=== PATIENT | female | born 1985 | race Caucasian/White ===

== ENCOUNTER → 2017-02-09 | Outpatient (CLI) | payer MEDICAID | LOC: FIMAGING 13:59 | PROVIDERS: ATTEND Midwife | DX: D25.2 Subserosal leiomyoma of uterus (principal); N92.6 Irregular menstruation, unspecified ==

== ENCOUNTER 2017-11-23 06:01 | Inpatient (IN) | payer MEDICAID ==
--- NOTE | 2017-11-16 17:01 | GHP ---
[f rep st] HISTORY AND PHYSICAL DATE OF ADMISSION: 11/23/2017 ADMITTING DIAGNOSIS: 1. Intrauterine at 39 weeks and 2 days. 2. Large cervical fibroid. 3. Primary section. HISTORY OF PRESENT ILLNESS: Patient is a 31-year-old, 1, para 0, at 39 and 2/7 weeks with estimated due date 11/28/2017 by LMP of 02/21/2017 and consistent with first trimester ultrasound at 8 weeks and 6 days. Patient presents to Labor and Delivery for a primary secondary to a large cervical fibroid. Discussed possible protracted labor, arrest of dilation and excessive bleeding secondary to location of fibroid and recommend we proceed with a . The patient agrees to a . Patient states good movement. Denies any leakage of fluid, vaginal bleeding, or contractions. Patient does desire cord blood collection and will bring her kit in. Patient has had good care at [facility], and presented in her first trimester. The has been mostly uncomplicated. All genetic testing was negative. Anatomy scan was normal with an estimated weight in 76%; however, there was a large left lateral fibroid off the cervix measuring 5 x 5 x 5 cm. A followup growth ultrasound in the 3rd trimester revealed normal growth with an estimated weight in 75%, and the posterior cervical fibroid had enlarged to 6 x 4 x 5.8 cm. Patient did receive Tdap during the . She developed anemia of and is tolerating iron. GBS culture is negative. PAST OB HISTORY: This is the patient's first . PAST FOUNDATION COORDINATOR HISTORY: Age of menarche is 10. Cycles are every 30-31 days for 7 days. LMP 02/21/2017. Positive test middle of March 2017. Patient denies history of abnormal Pap smears or any exposure to sexually transmitted diseases. MEDICATIONS: vitamin with DHA, folic acid, and iron. ALLERGIES: No known drug allergies. PAST MEDICAL HISTORY: Childhood asthma secondary to allergies with no symptoms for the last 15 years. PAST SURGICAL HISTORY: None. FAMILY HISTORY: Paternal grandmother with some type of pelvic cancer. Maternal grandfather, stroke. Maternal grandmother, dementia. Mother is a smoker. Paternal grandfather is an alcoholic. SOCIAL HISTORY: Patient is . 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 She moved here from [place], the rest of her family is still in [place]. She denies any current alcohol, tobacco, or illicit drug use. REVIEW OF SYSTEMS: 10-point review of systems negative. Pertinent positives noted in HPI. LABS: A-positive, antibody negative. RPR nonreactive. Rubella immune. Hepatitis B surface antigen negative. HIV negative. Standard panel all negative on 05/05/2017. Urine culture negative. Pap test negative in 2017. Gonorrhea, and chlamydia cultures negative. Single AFP negative 2017. Innatal negative 05/05/2017. H and H 12.1 and 35.6. One-hour Glucola 114. GBS culture is negative. PHYSICAL EXAMINATION: VITAL SIGNS: On admission, vital signs are stable. Patient is afebrile. GENERAL: Patient is well-nourished, well-developed female. Alert and oriented x3. No apparent distress. NEUROLOGIC: Grossly intact motor. CARDIOVASCULAR: Regular rate and rhythm. LUNGS: Clear to auscultation bilaterally. SKIN: Warm, dry with no rash. ABDOMEN: Gravid, soft, nontender. PELVIC: Deferred. EXTREMITIES: Normal to inspection without calf tenderness or edema. MUSCULOSKELETAL: Normal gait, range of motion. ASSESSMENT/PLAN: Patient is a 31-year-old 1, para 0, at 39 and 2/7 weeks who presents for a primary section secondary to a large cervical fibroid. 1. Admit to Labor and Delivery. 2. Surgical consents are on the chart. 3. Discussed risks, benefits, and alternatives of the procedure including, but not limited to, bleeding, infection, damage to surrounding organs, and other procedures including hysterectomy. 4. Patient understands all risks of the surgery and wants to proceed. 5. Antibiotics concrete carpenter to operating room. 6. Sequential compression devices for deep venous thrombosis prophylaxis. /[id number]/MODL MTDD
[2017-11-23] MEDS ORDERED: ceFAZolin 2 GM/DEXTROSE 100 ML IV ONE (06:47)
[2017-11-23] MEDS ORDERED: LR 500 ML IV ONE (06:47)
[2017-11-23] MEDS ORDERED: LR 1,000 ML IV SCH (06:47)
[2017-11-23] MEDS ORDERED: CITRIC ACID/SODIUM CITRATE 30 ML UDCUP PO ONE (06:47)
[2017-11-23 07:01] LABS: PLATELET COUNT 206 10^3/uL (150-400)
--- NOTE | 2017-11-23 07:06 | PREANESOB ---
Obstetric Pre-Anesthesia Info - General Info Proposed Procedure: C Section. : 1 Para: 0 MARCUS: 11/28/17 Gestational Age: 39 week(s) and 2 day(s) - Info Status: Full Term Monitors: External FHR Baseline (bpm): 130 FHR Pattern: Reassuring - Labor Status Section History: Primary (Uterine fibroid.) Labor Epidural: No Anesthesia ROS: No prior anesthesia. Allergies/Adverse Reactions: Allergy/AdvReac Type Severity Reaction Status Date / Time No Allergies Allergy Verified 11/23/17 06:21 Visit Medications: Generic Name Dose Route Start Last Admin Trade Name Freq PRN Reason Stop Dose Admin Cefazolin Sodium/Dextrose 100 mls @ 200 mls/hr 11/23/17 06:47 Ancef 2 Gm IV 11/23/17 07:16 ONCALL ONE Protocol Lactated Ringer's 1,000 mls @ 125 mls/hr 11/23/17 06:47 Lr IV 11/24/17 06:46 CONT YAMIL Discontinued Medications Generic Name Dose Route Start Last Admin Trade Name Freq PRN Reason Stop Dose Admin Citric Acid/Sodium Citrate 30 ml 11/23/17 06:47 Bicitra PO 11/23/17 06:48 ONCALL ONE Lactated Ringer's 500 mls @ 0 mls/hr 11/23/17 06:47 Lr IV 11/23/17 06:48 ONCE ONE As Directed - Anesthesia History Response to Local Anesthetics: Normal Anesthesia & Operative History: No Prior Problems Family Anesthesia History: Negative - Social History Substance Use/Abuse: Denies - Vital Signs Latest Vital Signs (Nursing): Temp Pulse Resp BP Pulse Ox 36.9 C 85 14 124/57 H 93 11/23/17 06:21 11/23/17 06:21 11/23/17 06:21 11/23/17 06:21 11/23/17 06:21 Blood Pressure: 124/57 Heart Rate: 85 Height/Weight (Nursing): Height 160.02 cm Weight 77.111 kg - Focused Exam Neck exam: FROM Mallampati Score: Class 1 Mouth exam: normal dental/mouth exam Pulmonary: no respiratory distress Cardiovascular: regular rate and rhythym Labs: 11/23/17 06:30 - Plan Anesthetic Plan: SAB Consent Signed and on Chart: Yes Patient/Guardian Understands and Agrees to Plan: Yes
[2017-11-23] MEDS ORDERED: LIDOCAINE 1% 300 MG/30 ML SDV ONE (07:12)
[2017-11-23] MEDS ORDERED: AMMONIA AROMATIC 1 EACH AMP IH ONE (07:12)
[2017-11-23] MEDS ORDERED: OLIVE OIL 118 ML BTL ONE (07:12)
[2017-11-23] MEDS ORDERED: MISOPROSTOL 200 MCG TAB ONE (07:13)
[2017-11-23] MEDS ORDERED: OXYTOCIN 10 UNIT/ML VIAL ONE (07:13)
[2017-11-23] MEDS ORDERED: TERBUTALINE SULFATE 1 MG/ML VIAL ONE (07:13)
[2017-11-23] MEDS ORDERED: morphINE PF 5 MG/10 ML INJ ONE (07:24)
[2017-11-23] MEDS ORDERED: fentaNYL 100 MCG/2 ML INJ ONE (07:25)
[2017-11-23] MEDS ORDERED: OXYTOCIN 100 UNITS/10 ML VIAL ONE (08:21)
[2017-11-23] MEDS ORDERED: ONDANSETRON 4 MG/2 ML VIAL ONE ×2 (08:22→08:51)
[2017-11-23] MEDS ORDERED: DEXAMETHASONE 4 MG/ML VIAL ONE ×2 (08:22→08:51)
[2017-11-23] MEDS ORDERED: PHENYLEPHRINE HCL 100 MCG/ML SYR ONE ×2 (08:38→08:51)
[2017-11-23] MEDS ORDERED: NALOXONE HCL 0.4 MG/ML INJ IVP PRN (09:29)
[2017-11-23] MEDS ORDERED: ONDANSETRON 4 MG/2 ML VIAL IVP PRN (09:29)
[2017-11-23] MEDS ORDERED: PHENYLEPHRINE HCL 100 MCG/ML SYR IVP PRN (09:29)
[2017-11-23] MEDS ORDERED: fentaNYL 100 MCG/2 ML INJ IVP PRN (09:29)
--- NOTE | 2017-11-23 09:32 | POSTANESTH ---
Post Anesthetic Evaluation Cardiovascular Status: Normal, Stable, Similar to Pre-Op Cond, Tx Over/Under Hydration Respiratory Status: Similar to Pre-op Cond. Level of Consciousness/Mental Status: Can Participate in Eval, Alert and Oriented Pain Control: Adequate, Prn Tx Ordered Nausea/Vomiting Control: Adequate, Prn Tx Ordered Complications Possibly Related to Anesthesia: None Noted
[2017-11-23] MEDS ORDERED: KETOROLAC 30 MG/1 ML SDV ONE (11:27)
[2017-11-23] MEDS ORDERED: SIMETHICONE 80 MG TAB CHEW PO PRN (12:08)
[2017-11-23] MEDS ORDERED: BISACODYL 10 MG SUPP PR PRN (12:08)
[2017-11-23] MEDS ORDERED: DOCUSATE SODIUM 100 MG CAP PO PRN (12:08)
[2017-11-23] MEDS ORDERED: PROMETHAZINE HCL 25 MG/ML INJ IVP PRN (12:08)
[2017-11-23] MEDS ORDERED: LACTULOSE 20 GM/30 ML UDCUP PO PRN (12:08)
[2017-11-23] MEDS ORDERED: MAGNESIUM HYDROXIDE 30 ML UDCUP PO PRN (12:08)
[2017-11-23] MEDS ORDERED: POLYETHYLENE GLYCOL 3350 17 GM PKT PO PRN (12:08)
--- NOTE | 2017-11-23 12:14 | OBDEL ---
Info Type: Primary Presentation at Delivery: Vertex (compound presentation) L&D Analgesia/Anesthesia Type: Spinal GBS+: No Intrapartum Medications: Discontinued Medications Generic Name Dose Route Start Last Admin Trade Name Jessica PRN Reason Stop Dose Admin Citric Acid/Sodium Citrate 30 ml 11/23/17 06:47 11/23/17 07:52 Bicitra PO 11/23/17 06:48 Not Given ONCALL ONE Cefazolin Sodium/Dextrose 100 mls @ 200 mls/hr 11/23/17 06:47 11/23/17 07:44 Ancef 2 Gm IV 11/23/17 07:16 100 mls ONCALL ONE Administration Protocol Lactated Ringer's 500 mls @ 0 mls/hr 11/23/17 06:47 11/23/17 07:44 Lr IV 11/23/17 06:48 500 mls ONCE ONE Administration As Directed - Infant Care Provider Gerontology Aide/MOTOR VEHICLE OPERATOR ROAD SUPERVISOR: Asha Mitchell - Hospital Course Intrapartum: 11/23/17 12:12 31 y/o @ 39 2/7 wks with large cervical fibroid for PCS Indications for Delivery: Elective (Cervical fibroid) Operative Report - Delivery Pre-op Diagnoses: 31 y/o @ 39 2/7 wks with large cervical fibroid for PCS Post-op Diagnoses: 31 y/o @ 39 2/7 wks with large cervical fibroid for PCS History of Prior Section: No Number of Prior Sections: 0 Nulliparous Prior to Delivery: Yes Indications for Current Section: Other (Specify) (Large cervical fibroid) Procedure: Scheduled, Low Transverse Surgeon: Bernadette Suarez Rn Advice: Jane Gunn Anesthesiologist: Josef Kennedy Complications: None Findings: A viable male infant born at 0825 with 8 and 9 Apgars in cephalic presentation, compound left hand. Delayed cord clamping x 15 seconds. Cord blood collected for stem cells as well as segment of cord. Minimal cord blood obtained. Placenta delivered manually intact with 3-vc. Grossly normal appearing uterus, tubes and ovaries. Cervical fibroid not visualized. No complications. Specimen(s)/Path: Other (Specify) (none) IV Fluid (ml): 2,700 EBL: 700 cc UO: 500 cc clear urine at end [place] Data MARCUS: 11/28/17 Gestational Age: 39 week(s) and 2 day(s) [place] Delivery Date: 11/23/17 Delivery Time: 08:25 Sex of : Male Weight (gm): 3152 g Score (1 Min): 8 Score (5 Min): 9 ICD10 Worksheet Patient Problems: Problems Problem Status Onset Fibroid of cervix Acute Status post primary low transverse section Acute - ICD10 Problem Qualifiers (1) Fibroid of cervix (2) Status post primary low transverse section
--- NOTE | 2017-11-23 12:58 | GOP ---
[f rep st] OPERATIVE REPORT DATE OF OPERATION: 11/23/2017 SURGEON: Bernadette Suarez DO SUPERVISOR OF RESEARCH: OSMAN Loco, needed for adequate exposure and retraction. ANESTHESIA: Spinal. ANESTHESIOLOGIST: Josef Kennedy MD. PREOPERATIVE DIAGNOSIS: Large cervical fibroid. POSTOPERATIVE DIAGNOSIS: Large cervical fibroid. PROCEDURE PERFORMED: Primary low transverse section. FINDINGS: A viable male infant born at 0825 with 8 and 9 Apgars in cephalic presentation, compound with left hand. Delayed cord clamping occurred for 15 seconds. Cord blood was collected for stem cells as well as a segment of cord. Placenta delivered manually intact with 3-vessel cord. Grossly normal- appearing uterus, tubes, and ovaries. The cervical fibroid was not visualized, but was palpated on exam. ESTIMATED BLOOD LOSS: 700 cc. INDICATIONS: The patient is a 31-year-old, G1, P0, at 39-2/7 weeks who presents to Labor and Delivery for a primary secondary to a large cervical fibroid measuring 6 x 6 cm. Discussed risks of protracted labor and increased risk of bleeding and need for urgent secondary to location of fibroid. Recommended proceeding with a primary . Patient agrees with the plan. Discussed risks, benefits, alternatives of the procedure including but not limited to, bleeding, infection, damage to surrounding organs , and another procedure-a hysterectomy. Patient understands all risks of the procedure, and wants to proceed at this time. Patient was properly consented. DESCRIPTION OF PROCEDURE: Patient was taken back to the operating room where spinal anesthesia was obtained without difficulty. The patient was then placed in dorsal lithotomy position, and prepped and draped in the usual sterile fashion. Ayoub catheter was placed at this time. After WHO time out, a Pfannenstiel skin incision was then made 2 cm above the pubic symphysis and carried down to the fascia using the Bovie. The fascia was then extended laterally using the Howell scissors. The rectus muscles were then dissected away both inferiorly and superiorly from the overlying fascia using Howell scissors. Rectus muscles were then in the midline and the peritoneum was visualized and entered bluntly. Bladder blade was then inserted. Vesicouterine peritoneum was identified, entered sharply with the Metzenbaum scissors and a bladder flap was created digitally. The lower uterine segment was identified and a low transverse uterine incision was made with scalpel and incisions was extended cephalad and caudad bluntly. Entry into the amniotic sac revealed clear fluid. The vertex was grasped, elevated out of the pelvis without difficulty followed by delivery of shoulders and the rest of the body with assistance of fundal pressure. Nose and mouth were bulb suctioned. 15 seconds of delayed cord clamping was performed. The cord was clamped x2, cut , and given to [facility]. Cord blood was obtained for stem cells as well as a segment of cord. Placenta was delivered manually intact with 3- vessel cord. Uterus was exteriorized, cleared of all clots and debris. Uterine incision was then closed in 2 layers,. The 1st layer was a running stitch of 0 Vicryl. Hemostasis noted. The 2nd layer was an imbricating layer using 0 Vicryl. There was some oozing noted from the uterus and 2 figure-of- eight stitches of 0 Vicryl was used, and hemostasis was achieved. The uterus was then returned back to the abdomen. The gutters were irrigated, and cleared of clots and debris. Uterine incision was then reinspected, and slight oozing noted, so Shaheen was placed and hemostasis was achieved. The rectus muscles were then reapproximated using 3-0 Vicryl. The fascia was closed with 0 Vicryl in a continuous fashion. Subcutaneous was closed with 2-0 Vicryl. Again , hemostasis was noted. Skin was then closed with 4-0 Vicryl on a Elver needle. The patient tolerated the procedure well. No complications. Sponge, lap, and needle counts correct x2. The patient was then taken out of dorsal lithotomy position and taken to the recovery room in stable condition. EXTRACTOR PULLER: RONALD Koenig. IV FLUIDS: 2700 cc LR. URINE OUTPUT: 500 cc of clear urine at the end of the procedure. /[id number]/MODL MTDD
[2017-11-23] MEDS: KETOROLAC 30 MG/1 ML SDV IVP SCH ×2 (13:55→20:49)
[2017-11-23] MEDS: IBUPROFEN 600 MG TAB PO SCH (18:04)
[2017-11-23] MEDS: SENNOSIDES/DOCUSATE SODIUM TAB PO SCH (20:50)
[2017-11-23] MEDS: ACETAMINOPHEN 325 MG TAB PO SCH (21:00)
[2017-11-24] MEDS: KETOROLAC 30 MG/1 ML SDV IVP SCH ×2 (02:27→09:36)
[2017-11-24] MEDS: IBUPROFEN 600 MG TAB PO SCH ×4 (04:18→20:18)
[2017-11-24] MEDS: ACETAMINOPHEN 325 MG TAB PO SCH ×4 (04:18→19:16)
[2017-11-24 05:06] LABS: PLATELET COUNT 190 10^3/uL (150-400)
--- NOTE | 2017-11-24 10:06 | OBPP ---
Progress Note Assessment/Plan: Assessment: POD 1 s/p primary c/s for cervical fibroid anemia Plan: routine care, iron BID 11/24/17 10:03 Subjective/ Course: 11/24/17 10:04 Pt doing well. Reports pain has been controlled well with toradol. will be proactive with ibu and [place] today. working on BF and having help with latch. hasn't urinated yet--mcnamara out approx 8a. able to ambulate well. has tatum reg diet. Objective: 11/24/17 05:01 Patient ABO/Rh A POSITIVE 11/23/17 06:30 Temp Pulse Resp BP Pulse Ox 36.6 C 79 18 95/60 L 94 11/24/17 09:00 11/24/17 09:00 11/24/17 09:00 11/24/17 09:00 11/24/17 05:02 Uterine Position/Fundal Height: Umbilicus -1 Uterine Tone: Firm Physical Exam - Physical Exam Abdomen: non-tender (approp post op tenderness,), soft, other (incision CDI, FF at umb -1) Extremities: non-tender, pedal edema (mild) Skin: normal color, warm/dry Neuro/Psych: alert, normal mood/affect
[2017-11-24] MEDS: SENNOSIDES/DOCUSATE SODIUM TAB PO SCH ×2 (11:00→20:18)
[2017-11-24] MEDS: IRON POLYSAC/IRON HEME 28 MG TAB PO SCH ×2 (11:01→20:18)
[2017-11-24] MEDS: HYDROCODONE/APAP 5/325 TAB PO PRN (17:41)
[2017-11-25] MEDS: HYDROCODONE/APAP 5/325 TAB PO PRN ×2 (00:33→04:27)
[2017-11-25] MEDS: ACETAMINOPHEN 325 MG TAB PO SCH ×2 (00:40→04:09)
[2017-11-25] MEDS: IBUPROFEN 600 MG TAB PO SCH ×3 (03:22→10:31)
[2017-11-25 03:51] VITALS: BP 95/62
[2017-11-25] MEDS: IRON POLYSAC/IRON HEME 28 MG TAB PO SCH (10:31)
[2017-11-25] MEDS: SENNOSIDES/DOCUSATE SODIUM TAB PO SCH (10:33)
--- NOTE | 2017-11-25 12:39 | OBPP ---
Progress Note Assessment/Plan: Assessment: 1) s/p PCS for cervical fibroid POD #2 - pt is stable 2) Anemia - pt is asymptomatic Plan: Plan for d/c home today Instructions reviewed with pt Rx given for [place] and Motrin Cont PNV, iron and colace Pelvic rest RTC in 2,4 and 6 weeks for pp visit 11/25/17 12:36 Subjective/ Course: 11/24/17 10:04 Pt doing well. Reports pain has been controlled well with toradol. will be proactive with ibu and [place] today. working on BF and having help with latch. hasn't urinated yet--mcnamara out approx 8a. able to ambulate well. has tatum reg diet. 11/25/17 12:37 Pt seen and examined. Doing well with no complaints. Pain is well controlled- last took [place] at 0430. Mild lochia. Pt is OOB, tatum regular diet, voiding, passing flatus. No BM. BF well so far. Objective: 11/24/17 05:01 Patient ABO/Rh A POSITIVE 11/23/17 06:30 Temp Pulse Resp BP Pulse Ox 36.2 C 74 16 95/62 L 97 11/25/17 03:50 11/25/17 03:50 11/25/17 03:50 11/25/17 03:50 11/25/17 03:50 Uterine Position/Fundal Height: Umbilicus -1 Uterine Tone: Firm Physical Exam - Physical Exam General Appearance: alert, no apparent distress, mild distress Respiratory: lungs clear, normal breath sounds Cardiac/Chest: regular rate, rhythm Abdomen: normal bowel sounds, non-tender, soft, flatus (+), incision (C/D/I, well approximated) Extremities: non-tender, normal inspection Skin: normal color, warm/dry Neuro/Psych: alert, normal mood/affect, oriented x 3
--- NOTE | 2017-11-25 12:40 | OBGCSDC ---
General Delivery Information - General Info : 1 Para: 1 Abortions: 0 Type: Primary L&D Analgesia/Anesthesia Type: Spinal Admission Date: 11/23/17 Labs: Patient ABO/Rh A POSITIVE 11/23/17 06:30 Hct 28.3 % (38.0-47.0) L 11/24/17 05:01 - Hospital Course Antepartum: 11/25/17 12:39 IUP @ 39 2/7 weeks with large cervical fibroid fro PCS Intrapartum: 11/23/17 12:12 31 y/o @ 39 2/7 wks with large cervical fibroid for PCS : 11/24/17 10:04 Pt doing well. Reports pain has been controlled well with toradol. will be proactive with ibu and [place] today. working on BF and having help with latch. hasn't urinated yet--mcnamara out approx 8a. able to ambulate well. has tatum reg diet. 11/25/17 12:37 Pt seen and examined. Doing well with no complaints. Pain is well controlled- last took [place] at 0430. Mild lochia. Pt is OOB, tatum regular diet, voiding, passing flatus. No BM. BF well so far. - Delivery Providers Surgeon: Bernadette Suarez Corn Cooker: Jane Gunn Anesthesiologist: Josef Kennedy - Delivery Number of Prior Sections: 0 Indications for Current Section: Other (Specify) (Large cervical fibroid) Surgical Procedures: Scheduled, Low Transverse Intra-op Complications: None EBL: 700 cc UO: 500 cc clear urine at end [place] Data MARCUS: 11/28/17 Gestational Age: 39 week(s) and 4 day(s) [place] Delivery Date: 11/23/17 Delivery Time: 08:25 Sex of Infant: Male Weight (gm): 3152 g Score (1 Min): 8 Score (5 Min): 9 Discharge Information - Discharge Information Condition: Good Instruction/Follow Up: Two Weeks, Four Weeks, Six Weeks
== END 2017-11-25 15:00 | disposition home or self-care (01) | DRG 540 ==
LOC: FLD 06:01 → FOB 12:39
PROVIDERS: ADMIT Obstetrics & Gynecology; ATTEND Obstetrics & Gynecology
PROC: 10D00Z1 Extraction of Products of Conception, Low, Open Approach (ICD-10-PCS; principal; 2017-11-23)
DX: O34.13 Maternal care for benign tumor of corpus uteri, third trimester (principal); D64.9 Anemia, unspecified; Z37.0 Single live birth; Z3A.39 39 weeks gestation of pregnancy; O99.03 Anemia complicating the puerperium
CPT/HCPCS: J0690; J1100; J1885; J2274; J2370; J2405; J2590; J3010; J3105